=== PATIENT | female | born 1940 | race Caucasian/White ===

== ENCOUNTER 2022-03-01 12:52 | Inpatient (IN) ==
[2022-03-01] MEDS ORDERED: SODIUM CHLORIDE 0.9% 1000ML 500 ML IV ONE (13:12)
--- NOTE | 2022-03-01 13:19 | Emergency Department Note ---
Impression & Plan Weakness, Acute UTI, Acute right flank pain ED Provider Note Provider: Marquis Miller MD DATE OF SERVICE: 03/01/2022 CHIEF COMPLAINT: Weakness/confusion HISTORY OF PRESENT ILLNESS: Patient is a 81-year-old female history of hyperlipidemia, dementia, celiac disease, and hypertension presenting with daughter today with acute onset several hours prior to arrival of some increased generalized weakness and confusion. Patient originally from the [facility] staying for the last several months with daughter who lives locally. Patient doing well and came down stairs and had breakfast and went back upstairs and got dressed today. Evidently about 2 hours ago or so came back downstairs and was resting on outdoor patio furniture seemingly staring off into space and not quite herself. Daughter states she seemed a bit confused and disoriented. No traumas reported. Daughter brought her here for further evaluation. Has had a little bit of loose stools the last day or 2. No fevers reported or cough. Does report onset afternoon a little bit of pain in the right lower chest wall. Daughter states she is also noted that of a red rash on the upper trunk and thighs but the patient states is not itchy. States maybe little bit of ache in the left thigh region but denies tenderness or pain elsewise in the leg. Little bit of stable swelling in the legs. Distant history of some urinary tract infections. REVIEW OF SYSTEMS: A total of 10 review of systems was obtained and negative except as stated above in the HPI. PAST MEDICAL HISTORY: As noted above MEDICATIONS: Amlodipine and simvastatin SOCIAL HISTORY: Currently residing here with daughter. PHYSICAL EXAM: GENERAL: alert and oriented in no acute distress on stretcher although does not remember sitting on patio furniture earlier by history from daughter. Head: normocephalic and atraumatic EYES: No injection, discharge or icterus. PERRL NECK: Trachea midline. Supple. ENT: Mucous membranes pink and moist. LUNGS: Airway patent. No retractions. Breath sounds clear with good air entry bilaterally. HEART: Regular rate and rhythm. No chest wall tenderness ABDOMEN: Soft and non-tender, without guarding or rebound. BACK: No midline tenderness, minimal right flank tenderness. SKIN: Acyanotic, warm, dry with a macular slightly erythematous rash on the upper thoracic back Nikolsky negative with some slight dry peeling skin. No raised features, vesicles, or bullae noted. EXTREMITIES: Without swelling, tenderness or deformity NEUROLOGICAL: No focal deficits. No aphasia. No facial droop or slurred speech. Normal strength and tone in the extremities. Sensation to gross touch normal. Ambulatory. EK bpm normal sinus rhythm. No PVC or PAC. No acute ST segment elevation or depression with a QTC of 425. CONTINUOUS CARDIAC MONITORING: was ordered and showed a heart rate of 80s bpm in normal sinus rhythm Patient's laboratory studies and imaging reviewed. Differential includes Infection, dehydration, metabolic abnormality, hypo/hyperglycemia, electrolyte disturbance, anemia, hypoxia, cardiac sources, intracerebral event, toxicologic, neurologic, as well as other pathologies. IMPRESSION/MEDICAL DECISION MAKING: Patient with some nonspecific generalized weakness and transient disorientation earlier that is improving now according to daughter. Not having word finding, slurred speech, or aphasia. No significant numbness or weakness of the extremities focally noted. Low suspicion for CVA at this time. Given her age however complaints a CT of the head will be completed. Chest x-ray and basic labs ordered. Chest x-ray per radiology reassuring. Want to exclude possible infectious etiology. May possibly be metabolic given the improvement already. Given a small amount of IV fluids. Lyme and tickborne testing was sent as well as COVID testing for thoroughness. Rash does not appear to be SJS or TEN. Does not appear to be cellulitis. Benign abdomen. Complains of an ache in the left inguinal and thigh region but no particular mass. Given that she is had some loose bowels and this pain here did complete a CT of the abdomen pelvis with a benign abdomen otherwise. Blood work today without anemia but a leukocytosis of 15 is noted. No significant electrolyte abnormalities signs of renal dysfunction. No signs of liver dysfunction or pancreatitis. Negative anaplasmosis smear negative COVID. Urinalysis concerning for infection with nitrates and leukoesterase. Question of possible some of this right lower chest wall pain could represent possible onset of pyelonephritis. Covered with 1 g of ceftriaxone given body weight. Does not appear septic at this point. CT report of the head and abdomen and pelvis per radiology reviewed. They question some inflammation of the gallbladder. Minimal right upper quadrant tenderness and negative Chambers's. I have lower suspicion for acute cholecystitis. Believe that she is a bit off due to the infectious etiology here. Discussed with patient and daughter at bedside findings I discussed likely UTI but given the question of some gallbladder information feel that observation overnight would be warranted. I do not believe she requires an acute surgical intervention at this time. Hospitalist to be contacted. DIAGNOSIS: Weakness, acute uti, right flank pain DISPOSITION: Hospitalist will evaluate Patient was agreeable with this plan. Past Med/Surg History Social History Smoking Status: Never smoker Feels Safe at Home: Yes Results & Data (ED) Vital Signs Vital Signs - 24 hr 03/01/22 12:56 03/01/22 13:46 03/01/22 13:46 Temperature 36.4 C L Temperature Source Oral Pulse Rate 92 H 87 Pulse Rhythm Regular Pulse Strength Normal Respiratory Rate 16 14 14 Respiratory Effort / Characteristics Non-Labored Spontaneous Non-Labored Respiratory Depth Normal Normal Respiratory Pattern Regular Blood Pressure 159/75 H Blood Pressure [Left Arm] 147/65 H Blood Pressure Mean 103 Blood Pressure Mean [Left Arm] 92 Blood Pressure Position Sitting Pulse Oximetry 96 97 97 Oxygen Delivery Method Room Air Room Air Sepsis Recent Fever Within 48 Hours No Sepsis New/Unexplained Change in Mental Status No Sepsis Action Taken by Nursing No Action Required Laboratory Data Result diagrams: 03/01/22 13:30 03/01/22 13:30 Lab Results 03/01/22 03/01/22 03/01/22 Range/Units 13:30 13:30 13:30 WBC 15.00 H (4.8-10.8) K/ul RBC 3.76 L (3.93-5.22) M/uL Hgb 12.0 (12.0-16.0) g/dl Hct 37.0 (34.1-44.9) % MCV 98.4 (80.0-100.0) fL MCH 31.9 (25.0-34.0) pg MCHC 32.4 (32.0-36.0) g/dL RDW Std Deviation 50.4 H (36.4-46.3) fL RDW Coeff of Rolanda 13.9 (11.5-14.5) % Plt Count 231 (130-400) K/uL MPV 9.8 (9.4-12.3) fL Immature Gran % (Auto) 0.5 % Neut % (Auto) 85.0 % Lymph % (Auto) 5.7 % Dyer % (Auto) 8.6 % Eos % (Auto) 0.0 % Baso % (Auto) 0.2 % Neut # (Auto) 12.75 H (1.4-6.5) K/uL Lymph # (Auto) 0.86 L (1.2-3.4) K/uL Dyer # (Auto) 1.29 H (0.24-0.82) K/uL Eos # (Auto) 0.00 (0-0.50) K/uL Baso # (Auto) 0.03 (0-0.2) K/uL Immature Gran # (Auto) 0.07 H (0.00-0.02) K/uL Sodium 139 (136-145) mmol/L Potassium 3.8 (3.5-5.1) mmol/L Chloride 104 (98-107) mmol/L Carbon Dioxide 26 (21-32) mmol/L Anion Gap 9 (3-11) BUN 21 (6-23) mg/dl Creatinine 0.75 (0.6-1.2) mg/dl Est Cr Clr Drug Dosing 35.2 ml/min Est GFR ( Amer) 86.0 ml/min Est GFR (Non-Af Amer) 74.2 ml/min BUN/Creatinine Ratio 28.0 H (10-20) Glucose 104 H (70-99(Fasting)) mg/dl Calcium 8.8 (8.5-10.1) mg/dl Magnesium 1.7 (1.7-2.4) mg/dl Total Bilirubin 0.8 (0.2-1.0) mg/dl AST 20 (13-39) U/L ALT 18 (7-52) U/L Alkaline Phosphatase 62 (34-104) U/L Total Creatine Kinase 82 (26-192) U/L Troponin I High Sens 10.5 (0-14) pg/ml Total Protein 6.9 (6.0-8.3) gm/dl Albumin 4.0 (3.4-5.0) gm/dl Globulin 2.9 (2.5-4.0) gm/dl Albumin/Globulin Ratio 1.4 (0.9-2) Lipase 45 (11-82) U/L TSH 0.746 (0.300-4.500) uIu/ml Urine Color Urine Appearance (Clear) Urine pH (4.5-7.5) Ur Specific [place] (1.000-1.030) Urine Protein (Negative) Urine Glucose (UA) (Negative) Urine Ketones (Negative) Urine Blood (Negative) Urine Nitrite (Negative) Urine Bilirubin (Negative) Urine Urobilinogen (Negative) Ur Leukocyte Esterase (Negative) Urine WBC (Auto) Urine RBC (Auto) U Hyaline Cast (Auto) U Epithel Cells (Auto) Urine Bacteria (Auto) Urine RBC (0-4) /hpf Urine WBC (0-5) /hpf Ur Epithelial Cells (0-5) /lpf Urine Bacteria (Negative) Anaplasma Smear See Comment Lyme Disease IgG Ab (Negative) Lyme Disease IgM Ab (Negative) SARS-CoV-2, RNA, NAAT (NEGATIVE) 03/01/22 03/01/22 03/01/22 Range/Units 13:30 13:30 13:30 WBC (4.8-10.8) K/ul RBC (3.93-5.22) M/uL Hgb (12.0-16.0) g/dl Hct (34.1-44.9) % MCV (80.0-100.0) fL MCH (25.0-34.0) pg MCHC (32.0-36.0) g/dL RDW Std Deviation (36.4-46.3) fL RDW Coeff of Rolanda (11.5-14.5) % Plt Count (130-400) K/uL MPV (9.4-12.3) fL Immature Gran % (Auto) % Neut % (Auto) % Lymph % (Auto) % Dyer % (Auto) % Eos % (Auto) % Baso % (Auto) % Neut # (Auto) (1.4-6.5) K/uL Lymph # (Auto) (1.2-3.4) K/uL Dyer # (Auto) (0.24-0.82) K/uL Eos # (Auto) (0-0.50) K/uL Baso # (Auto) (0-0.2) K/uL Immature Gran # (Auto) (0.00-0.02) K/uL Sodium (136-145) mmol/L Potassium (3.5-5.1) mmol/L Chloride (98-107) mmol/L Carbon Dioxide (21-32) mmol/L Anion Gap (3-11) BUN (6-23) mg/dl Creatinine (0.6-1.2) mg/dl Est Cr Clr Drug Dosing ml/min Est GFR ( Amer) ml/min Est GFR (Non-Af Amer) ml/min BUN/Creatinine Ratio (10-20) Glucose (70-99(Fasting)) mg/dl Calcium (8.5-10.1) mg/dl Magnesium (1.7-2.4) mg/dl Total Bilirubin (0.2-1.0) mg/dl AST (13-39) U/L ALT (7-52) U/L Alkaline Phosphatase (34-104) U/L Total Creatine Kinase (26-192) U/L Troponin I High Sens (0-14) pg/ml Total Protein (6.0-8.3) gm/dl Albumin (3.4-5.0) gm/dl Globulin (2.5-4.0) gm/dl Albumin/Globulin Ratio (0.9-2) Lipase (11-82) U/L TSH (0.300-4.500) uIu/ml Urine Color Yellow Urine Appearance Clear (Clear) Urine pH 5.0 (4.5-7.5) Ur Specific [place] 1.018 (1.000-1.030) Urine Protein Trace H (Negative) Urine Glucose (UA) Negative (Negative) Urine Ketones Negative (Negative) Urine Blood 1+ H (Negative) Urine Nitrite Positive A (Negative) Urine Bilirubin Negative (Negative) Urine Urobilinogen Negative (Negative) Ur Leukocyte Esterase 2+ H (Negative) Urine WBC (Auto) Not Reportable Urine RBC (Auto) Not Reportable U Hyaline Cast (Auto) Not Reportable U Epithel Cells (Auto) Not Reportable Urine Bacteria (Auto) Not Reportable Urine RBC 5-10 H (0-4) /hpf Urine WBC >30 H (0-5) /hpf Ur Epithelial Cells 0-5 (0-5) /lpf Urine Bacteria 3+ H (Negative) Anaplasma Smear Lyme Disease IgG Ab Negative (Negative) Lyme Disease IgM Ab Negative (Negative) SARS-CoV-2, RNA, NAAT NEGATIVE (NEGATIVE) Administered Medications Discontinued Medications Sodium Chloride (Nss 1000ml) 500 mls @ 999 mls/hr IV .Q31M ONE Stop: 03/01/22 13:42 Last Infusion: 03/01/22 14:37 Dose: 0 mls/hr Documented By: Admin: 03/01/22 13:59 Dose: 999 mls/hr Documented By: SMITA Ceftriaxone Sodium (Rocephin) 1,000 mg in 50 mls @ 100 mls/hr IV NOW STA Stop: 03/01/22 14:54 Last Admin: 03/01/22 15:00 Dose: 100 mls/hr Documented By: SMITA Imaging Data Radiologist's Impression: Chest X-Ray 03/01/22 13:12 XR chest 1V portable CLINICAL HISTORY: weak, R chest pain TECHNIQUE: Single frontal radiograph of the chest was obtained. Comparison: None available at the time of this dictation. FINDINGS: No lines and tubes are seen. The cardiomediastinal silhouette is normal. The lungs are clear. No evidence of pleural effusion or pneumothorax. IMPRESSION: No acute chest disease. ACT 112: Negative or not required by law. Electronically signed by: Harmeet Grove M.D. 03/01/2022 1:[address] 03/01/22 13:13 CT head/brain wo con CLINICAL HISTORY: weak/fatigue Technique: Contiguous axial CT images of the head were acquired from the base of the skull to the vertex without intravenous contrast administration. Images were viewed in brain, subdural and bone windows. Automated dose lowering techniques and/or adjustment according to patient size were utilized for this exam. Comparison: None available at the time of this dictation. Findings: Areas of decreased attenuation are present in the periventricular and subcortical white matter bilaterally consistent with small vessel ischemic disease. Generalized cerebral atrophy with commensurate enlargement of the ventricles, sulci, and cisterns is also present. There is no acute intracranial hemorrhage or evidence of acute territorial infarction. No shift of the midline structures, mass effect, or extra-axial abnormalities are shown. Atherosclerot ic calcifications are present in the intracranial segments of the internal carotid arteries. Imaged portions of the paranasal sinuses and mastoid air cells are clear. The orbits appear normal. There are no acute fractures of the calvaria or scalp swelling. Impression: No acute intracranial hemorrhage, no evidence of acute territorial infarction or other acute intracranial disease process. ACT 112: Negative or not required by law. Electronically signed by: Harmeet Grvoe M.D. 03/01/2022 3:09 PM Abdomen/Pelvis CT 03/01/22 13:16 CT abd pelvis wo con CLINICAL HISTORY: LLQ pain TECHNIQUE: Helical axial images of the abdomen and pelvis were obtained. Automated dose lowering techniques and/or adjustment according to patient size were utilized for this exam. This exam was performed without intravenous con trast. CT DOSE: 854.95 mGy.cm COMPARISON: None available at the time of this dictation. FINDINGS: Lower chest: No acute abnormality Liver: Unremarkable. No focal lesions are seen. Gallbladder and biliary tree: The gallbladder wall is thickened and there is surrounding fat stranding. The common bile duct is enlarged measuring 8 mm and there is prominent dilation of intrahepatic bile ducts. Pancreas: Prominence of the pancreatic duct is seen, measuring 3 mm at the distal body. Spleen: Unremarkable. Adrenals: Unremarkable. Kidneys and ureters: Unremarkable. Bladder: Unremarkable. Reproductive organs: Patient appears to be status post hysterectomy. Bowel: Diverticulosis is seen without evidence of diverticulitis. Multiple distended and mildly thickened loops of small bowel are seen measuring up to 30 mm in diameter. Equalization of small bowel contents noted. Lymph nodes Retroperitoneal: Unremarkable. Pelvic: Unremarkable. Mesenteric: Unremarkable. Peritoneum: Normal. Vessels: Atherosclerotic calcifications are seen. Abdominal wall: Unremarkable. Bones: Degenerative changes in the visualized spine. IMPRESSION: 1. Multiple distended loops of small bowel with mildly thickened bhatt without sree obstruction. Findings may represent enteritis and/or ileus. 2. Gallbladder wall thickening and enlargement of the common bile duct and pancreatic duct. Findings may be reactive however acute cholecystitis and/or choledocholithiasis is also possible. 3. Additional findings as above. ACT 112: Negative or not required by law. Electronically signed by: Harmeet Grove M.D. 03/01/2022 3:19 PM Discharge Plan Visit Data Chief Complaint: Urinary Symptoms Stated Complaint: MIGHT HAVE A UTI ED Provider: Marquis Miller Discharge Problem: Weakness, Acute UTI, Acute right flank pain Patient Disposition: Being Evaluated by Hospitalist Forms Stand Alone Forms: My [facility] Referrals Referrals: PCP,NO [Primary Care Provider] -
--- NOTE | 2022-03-01 13:51 | XRay Report ---
XR chest 1V portable CLINICAL HISTORY: weak, R chest pain TECHNIQUE: Single frontal radiograph of the chest was obtained. Comparison: None available at the time of this dictation. FINDINGS: No lines and tubes are seen. The cardiomediastinal silhouette is normal. The lungs are clear. No evid ence of pleural effusion or pneumothorax. IMPRESSION: No acute chest disease. ACT 112: Negative or not required by law. Electronically signed by: Harmeet Grove M.D. 03/01/2022 1:49 PM
[2022-03-01 13:58] LABS: Basophils # (auto) 0.03 K/uL (0-0.2); Basophils % (auto) 0.2 %; Immature Granulocytes # (auto) 0.07 K/uL (0.00-0.02); Immature Granulocytes % (auto) 0.5 %; Lymphocytes # (auto) 0.86 K/uL (1.2-3.4); Lymphocytes % (auto) 5.7 %; Mean Corpuscular Hemoglobin 31.9 pg (25.0-34.0); Mean Corpuscular Hgb Conc 32.4 g/dL (32.0-36.0); Mean Corpuscular Volume 98.4 fL (80.0-100.0); Mean Platelet Volume 9.8 fL (9.4-12.3); Monocytes # (auto) 1.29 K/uL (0.24-0.82); Monocytes % (auto) 8.6 %; Neutrophils # (auto) 12.75 K/uL (1.4-6.5); Platelet Count 231 K/uL (130-400); RDW Coefficient of Variation 13.9 % (11.5-14.5); RDW Standard Deviation 50.4 fL (36.4-46.3); Red Blood Count 3.76 M/uL (3.93-5.22)
[2022-03-01 13:59] LABS: Appearance Urine Clear (Clear); Bilirubin Urine Negative (Negative); Blood Urine 1+ (Negative); Color Urine Yellow; Glucose Urine UA Negative (Negative); Ketones Urine Negative (Negative); Leukocyte Esterase Urine 2+ (Negative); Nitrite Urine Positive (Negative); Protein Urine Trace (Negative); Specific Gravity Urine 1.018 (1.000-1.030); Urobilinogen Urine Negative (Negative)
[2022-03-01 14:11] LABS: Albumin Globulin Ratio 1.4 (0.9-2); Bilirubin,Total 0.8 mg/dl (0.2-1.0); Calcium 8.8 mg/dl (8.5-10.1); Creatinine Clr Calc Pharmacy 35.2 ml/min; Est GFR (Non-African American) 74.2 ml/min; Globulin 2.9 gm/dl (2.5-4.0); Magnesium 1.7 mg/dl (1.7-2.4); Potassium 3.8 mmol/L (3.5-5.1); Total Protein 6.9 gm/dl (6.0-8.3)
[2022-03-01 14:18] LABS: Troponin I High Sensitivity 10.5 pg/ml (0-14)
[2022-03-01] MEDS ORDERED: cefTRIAXone SODIUM 1,000 MG/50 ML BAG IV STA (14:25)
[2022-03-01 14:49] LABS: Bacteria Urine 3+ (Negative); Epithelial Cell Urine 0-5 /lpf (0-5); WBC Urine >30 /hpf (0-5)
[2022-03-01 14:52] LABS: Lyme Ab IgG w/WB Rflx Negative (Negative); Lyme Ab IgM w/WB Rflx Negative (Negative)
--- NOTE | 2022-03-01 15:11 | CT Scan Report ---
CT head/brain wo con CLINICAL HISTORY: weak/fatigue Technique: Contiguous axial CT images of the head were acquired from the base of the skull to the reji evon without intravenous contrast administration. Images were viewed in brain, subdural and bone [facility]. Automated dose lowering techniques and/or adjustment according to patient size were utilized for this exam. Comparison: None available at the time of this dictation. Findings: Areas of decreased attenuation are present in the periventricular and subcortical white matter bilate rally consistent with small vessel ischemic disease. Generalized cerebral atrophy with commensurate e nlargement of the ventricles, sulci, and cisterns is also present. There is no acute intracranial hem orrhage or evidence of acute territorial infarction. No shift of the midline structures, mass effect, or extra-axial abnormalities are shown. Atherosclerotic calcifications are present in the intracran ial segments of the internal carotid arteries. Imaged portions of the paranasal sinuses and mastoid air cells are clear. The orbits appear normal. There are no acute fractures of the calvaria or scalp swelling. Impression: No acute intracranial hemorrhage, no evidence of acute territorial infarction or other acute intracra nial disease process. ACT 112: Negative or not required by law. Electronically signed by: Harmeet Grove M.D. 03/01/2022 3:09 PM
--- NOTE | 2022-03-01 15:22 | CT Scan Report ---
CT abd pelvis wo con CLINICAL HISTORY: LLQ pain TECHNIQUE: Helical axial images of the abdomen and pelvis were obtained. Automated dose lowering tech niques and/or adjustment according to patient size were utilized for this exam. This exam was perfor med without intravenous contrast. CT DOSE: 854.95 mGy.cm COMPARISON: None available at the time of this dictation. FINDINGS: Lower chest: No acute abnormality Liver: Unremarkable. No focal lesions are seen. Gallbladder and biliary tree: The gallbladder wall is thickened and there is surrounding fat strandin g. The common bile duct is enlarged measuring 8 mm and there is prominent dilation of intrahepatic bi le ducts. Pancreas: Prominence of the pancreatic duct is seen, measuring 3 mm at the distal body. Spleen: Unremarkable. Adrenals: Unremarkable. Kidneys and ureters: Unremarkable. Bladder: Unremarkable. Reproductive organs: Patient appears to be status post hysterectomy. Bowel: Diverticulosis is seen without evidence of diverticulitis. Multiple distended and mildly thick ened loops of small bowel are seen measuring up to 30 mm in diameter. Equalization of small bowel con tents noted. Lymph nodes Retroperitoneal: Unremarkable. Pelvic: Unremarkable. Mesenteric: Unremarkable. Peritoneum: Normal. Vessels: Atherosclerotic calcifications are seen. Abdominal wall: Unremarkable. Bones: Degenerative changes in the visualized spine. IMPRESSION: 1. Multiple distended loops of small bowel with mildly thickened bhatt without sree obstruction. Fi ndings may represent enteritis and/or ileus. 2. Gallbladder wall thickening and enlargement of the common bile duct and pancreatic duct. Findings may be reactive however acute cholecystitis and/or choledocholithiasis is also possible. 3. Additional findings as above. ACT 112: Negative or not required by law. Electronically signed by: Harmeet Grove M.D. 03/01/2022 3:19 PM
--- NOTE | 2022-03-01 15:47 | History & Physical Report ---
Date of Service March 01, 2022 Assessment & Plan (1) Acute metabolic encephalopathy: (2) UTI (urinary tract infection): (3) Weakness: Plan: This is an 81yo F with a PMH of dementia, hypertension, hyperlipidemia and other medical problems listed below who presents with lethargy and generalized weakness noted earlier today by family and was found to have urinary tract infection. Afebrile on arrival (although reported home temp of 101 F), leukocytosis of 15 K. Possible sepsis but nontoxic appearance. Lactate pending UA abnormal, anaplasma smear without evidence of inclusion bodies to suggest anaplasmosis but DNA pending. Lyme serology negative Head CT without acute intracranial abnormality, chest x-ray without abnormality. CT abd/pelvis discussed below Continue Rocephin. Follow urine culture and blood culture. Gentle IV fluids Fall precautions, PT/OT evaluation. Lives with family (4) Abnormal CT of the abdomen: Plan: CT abdomen pelvis with multiple distended loops of small bowel with mildly thickened bhatt without sree obstruction. Findings may represent enteritis and/or ileus. 2. Gallbladder wall thickening and enlargement of the common bile duct and pancreatic duct. Findings may be reactive however acute cholecystitis and/or choledocholithiasis is also possible No abdominal pain or abnormal LFTs so low suspicion for acute cholecystitis. No diarrhea Obtain gall bladder ultrasound, repeat CMP in AM Keep NPO until completion of ultrasound (5) Dementia: Plan: A&O x person on admission which is close to baseline, per daughter. Ambulates independently and feeds herself at baseline (6) Hypertension: Plan: Continue amlodipine (7) Hyperlipidemia: Plan: Continue statin DVT Ppx: SQ Lovenox Code status: FULL PCP: No local PCP - staying with daughter but medical care based in [place] for now Dispo: Admitted to med/surg Patient seen in collaboration with Dr. Wells. Please see addendum. History of Present Illness Chief Complaint: lethargy, generalized weakness Primary Care Provider: NO PCP This is an 81yo F with a PMH of dementia, hypertension, hyperlipidemia and other medical problems listed below who presents with lethargy and generalized weakness noted earlier today by family. Patient is and normally resides in [place] but due to multiple falls a few months ago, she moved in with her daughter in [place]. Is able to ambulate independently and just completed PT/OT per daughter. Woke up in normal state of health and was able to walk up and down the stairs and get dressed but patient son-in-law noted that she sat on the porch for hours with dazed expression, which is not her typical baseline. Was also unable to stand up on her own out of the chair. Family brought to ED for further evaluation. Patient is taking all medications as prescribed. Daughter reports temperature at home but normal temperature upon arrival. No chills, congestion, headache, chest pain, palpitations, nausea, vomiting, abdominal pain, dysuria, diarrhea or constipation. Any hematuria or pyuria. Allergies Allergy/AdvReac Type Severity Reaction Status Date / Time No Known Allergies Allergy Unverified 03/01/22 16:25 Home Medications Medication Instructions Recorded Confirmed Type Lactobacillus acidophilus 10 10,000 mmu cells PO DAILY 03/01/22 03/01/22 History billion cell capsule (Probiotic) amlodipine 5 mg tablet 5 mg PO QAM 03/01/22 03/01/22 History aspirin 81 mg tablet,delayed 81 mg PO QAM 03/01/22 03/01/22 History release calcium carbonate 600 mg-vitamin 1 tab PO DAILY 03/01/22 03/01/22 History D3 10 mcg (400 unit) tablet (Calcium 600 + D(3)) cyanocobalamin (vitamin B-12) 1,000 mcg PO 3XWK 03/01/22 03/01/22 History 1,000 mcg tablet (Vitamin B-12) ferrous sulfate 325 mg (65 mg 325 mg PO DAILY 03/01/22 03/01/22 History iron) tablet inulin 2 gram chewable tablet 2 g PO DAILY 03/01/22 03/01/22 History (Fiber Gummies) multivit with 1 tab PO DAILY 03/01/22 03/01/22 History opqbwchi-qvye-IU-lutein 8 mg iron-400 mcg-300 mcg tablet (Multivitamin Women 50 Plus) simvastatin 20 mg tablet 20 mg PO HS 03/02/22 03/02/22 History cephalexin 500 mg capsule 500 mg PO Q12H 5 days #10 caps 03/03/22 Rx Past Med/Surg History Medical History (Updated 03/01/22 @ 16:36 by Tyra Nichols PA-C) Celiac disease Dementia Hyperlipidemia Hypertension Surgical History H/O: hysterectomy Family History Other Heart disease Stroke Social History (Updated 03/01/22 @ 16:20 by Tyra Nichols PA-C) Smoking Status: Never smoker Hx Alcohol Use: Yes Alcohol type: wine Alcohol Intake Frequency: Monthly or Less Hx Substance Use: No Preferred Language: Czech [employer] Required: No Beliefs That Will Affect Care: None Current Living Situation: Family Other Information That Helps Us Care for You: No Feels Safe at Home: Yes Safety Concerns: Feels Safe At This Time Assistive Devices: None Assistive Devices Comment: readers - daughter may bring in Review of Systems Review of Systems: At least ten systems reviewed and negative except as noted in the HPI. Physical Exam Physical Exam: General Appearance: WD/WN, vitals as above, NAD, sitting up in bed, pleasant, frail Head: normocephalic, atraumatic Eyes: normal inspection, PERRL, conjunctivae normal, anicteric sclerae ENT: external ear and nose normal, oropharynx normal Neck: normal visual inspection, trachea midline, no thyromegaly Respiratory: normal respiratory effort, lungs clear to auscultation, no wheeze, rales, rhonchi. No accessory muscle use Cardiovascular: regular rate, rhythm, no murmur, normal peripheral pulses, no BLE edema. Vessels: no JVD Chest: normal inspection of chest Abdomen/GI: hyperactive bowel sounds, soft, nontender, no hepatosplenomegaly Extremities/Musculoskeletal: no cyanosis or clubbing, extremities motor strength 5/5 Neurologic: PERRL, EOMI, accommodation nl, no face palsy, no dysarthria, CN's II-XI intact bilaterally and moves all extremities Psychiatric: A+Ox person, euthymic affect Skin: no rashes, normal color, warm/dry Results & Data Results & Data ([facility]) Vital Signs (Past 12 Hours) Vital Signs Temp Pulse Resp BP BP Pulse Ox O2 Del Method 03/01/22 13:46 87 14 97 Room Air 03/01/22 13:46 14 147/65 H 97 03/01/22 12:56 36.4 C L 92 H 16 159/75 H 96 Room Air Laboratory Results Short CBC 03/01/22 Range/Units 13:30 WBC 15.00 H (4.8-10.8) K/ul Hgb 12.0 (12.0-16.0) g/dl Hct 37.0 (34.1-44.9) % Plt Count 231 (130-400) K/uL BMP 03/01/22 13:30 Sodium 139 Potassium 3.8 Chloride 104 Carbon Dioxide 26 BUN 21 Creatinine 0.75 Glucose 104 H Calcium 8.8 Cardiac Enzymes 03/01/22 Range/Units 13:30 Total Creatine Kinase 82 (26-192) U/L Liver Function 03/01/22 Range/Units 13:30 Total Bilirubin 0.8 (0.2-1.0) mg/dl AST 20 (13-39) U/L ALT 18 (7-52) U/L Alkaline Phosphatase 62 (34-104) U/L Albumin 4.0 (3.4-5.0) gm/dl Urine 03/01/22 Range/Units 13:30 Urine Color Yellow Urine Appearance Clear (Clear) Urine pH 5.0 (4.5-7.5) Ur Specific [place] 1.018 (1.000-1.030) Urine Protein Trace H (Negative) Urine Glucose (UA) Negative (Negative) Diagnostic Findings Chest X-Ray 03/01/22 13:12 XR chest 1V portable CLINICAL HISTORY: weak, R chest pain TECHNIQUE: Single frontal radiograph of the chest was obtained. Comparison: None available at the time of this dictation. FINDINGS: No lines and tubes are seen. The cardiomediastinal silhouette is normal. The lungs are clear. No evidence of pleural effusion or pneumothorax. IMPRESSION: No acute chest disease. ACT 112: Negative or not required by law. Electronically signed by: Harmeet Grove M.D. 03/01/2022 1:[address] 03/01/22 13:13 CT head/brain wo con CLINICAL HISTORY: weak/fatigue Technique: Contiguous axial CT images of the head were acquired from the base of the skull to the vertex without intravenous contrast administration. Images were viewed in brain, subdural and bone windows. Automated dose lowering techniques and/or adjustment according to patient size were utilized for this exam. Comparison: None available at the time of this dictation. Findings: Areas of decreased attenuation are present in the periventricular and subcortical white matter bilaterally consistent with small vessel ischemic disease. Generalized cerebral atrophy with commensurate enlargement of the ventricles, sulci, and cisterns is also present. There is no acute intracranial hemorrhage or evidence of acute territorial infarction. No shift of the midline structures, mass effect, or extra-axial abnormalities are shown. Atherosclerotic calcifications are present in the intracranial segments of the internal carotid arteries. Imaged portions of the paranasal sinuses and mastoid air cells are clear. The orbits appear normal. There are no acute fractures of the calvaria or scalp swelling. Impression: No acute intracranial hemorrhage, no evidence of acute territorial infarction or other acute intracranial disease process. ACT 112: Negative or not required by law. Electronically signed by: Harmeet Grove M.D. 03/01/2022 3:09 PM Abdomen/Pelvis CT 03/01/22 13:16 CT abd pelvis wo con CLINICAL HISTORY: LLQ pain TECHNIQUE: Helical axial images of the abdomen and pelvis were obtained. Automated dose lowering techniques and/or adjustment according to patient size were utilized for this exam. This exam was performed without intravenous contrast. CT DOSE: 854.95 mGy.cm COMPARISON: None available at the time of this dictation. FINDINGS: Lower chest: No acute abnormality Liver: Unremarkable. No focal lesions are seen. Gallbladder and biliary tree: The gallbladder wall is thickened and there is surrounding fat stranding. The common bile duct is enlarged measuring 8 mm and there is prominent dilation of intrahepatic bile ducts. Pancreas: Prominence of the pancreatic duct is seen, measuring 3 mm at the distal body. Spleen: Unremarkable. Adrenals: Unremarkable. Kidneys and ureters: Unremarkable. Bladder: Unremarkable. Reproductive organs: Patient appears to be status post hysterectomy. Bowel: Diverticulosis is seen without evidence of diverticulitis. Multiple distended and mildly thickened loops of small bowel are seen measuring up to 30 mm in diameter. Equalization of small bowel contents noted. Lymph nodes Retroperitoneal: Unremarkable. Pelvic: Unremarkable. Mesenteric: Unremarkable. Peritoneum: Normal. Vessels: Atherosclerotic calcifications are seen. Abdominal wall: Unremarkable. Bones: Degenerative changes in the visualized spine. IMPRESSION: 1. Multiple distended loops of small bowel with mildly thickened bhatt without sree obstruction. Findings may represent enteritis and/or ileus. 2. Gallbladder wall thickening and enlargement of the common bile duct and pancreatic duct. Findings may be reactive however acute cholecystitis and/or choledocholithiasis is also possible. 3. Additional findings as above. ACT 112: Negative or not required by law. Electronically signed by: Harmeet Grove M.D. 03/01/2022 3:19 PM Code Status & VTE Plan VTE Prophylaxis Plan VTE Prophylaxis will be ordered: Yes Supervising Physician Co-Signing Physician Notes delayed entry date of service noted above Attending Addendum: care coordinated with SEUN Nichols please refer to her notes for full details, I agree with her notes patient seen and examined, records reviewed by myself as well on exam, patient seen with daughter at bedside alert, oriented x 3, answers questions appropriately feels weak, but otherwise no active symptoms diagnoses and plan of care as per SEUN Nichols's notes Viktor Wells MD
[2022-03-01] MEDS ORDERED: SODIUM CHLORIDE 0.9% 500 ML IV SCH (16:45)
[2022-03-01] MEDS ORDERED: ACETAMINOPHEN 325 MG TAB PO PRN (16:57)
[2022-03-01] MEDS ORDERED: POLYETHYLENE (MIRALAX) 17 GM PACK PO PRN (16:57)
[2022-03-01] MEDS: ENOXAPARIN INJ 30 MG/0.3 ML SYR SQ SCH (20:13)
[2022-03-02] MEDS: amLODIPine BESYLATE 5 MG TAB PO SCH (08:30)
[2022-03-02 08:36] LABS: Hematocrit (blood only) 34.3 % (34.1-44.9); Hemoglobin 10.8 g/dl (12.0-16.0); Mean Corpuscular Hgb Conc 31.5 g/dL (32.0-36.0); Mean Corpuscular Volume 98.6 fL (80.0-100.0); Mean Platelet Volume 10.1 fL (9.4-12.3); Platelet Count 207 K/uL (130-400); RDW Coefficient of Variation 13.8 % (11.5-14.5); RDW Standard Deviation 50.2 fL (36.4-46.3); Red Blood Count 3.48 M/uL (3.93-5.22); White Blood Count 9.13 K/ul (4.8-10.8)
[2022-03-02 09:00] LABS: Albumin Globulin Ratio 1.3 (0.9-2); Albumin Level 3.2 gm/dl (3.4-5.0); BUN Creatinine Ratio 23.8 (10-20); Bilirubin,Total 0.6 mg/dl (0.2-1.0); Calcium 8.1 mg/dl (8.5-10.1); Est GFR (African American) 96.8 ml/min; Est GFR (Non-African American) 83.5 ml/min; Globulin 2.5 gm/dl (2.5-4.0); Potassium 3.5 mmol/L (3.5-5.1); Total Protein 5.7 gm/dl (6.0-8.3)
--- NOTE | 2022-03-02 10:59 | Ultrasound Report ---
US abdomen limited CLINICAL HISTORY: Abnormal gallbladder from CT. Evaluate for possible acute cholecystitis. COMPARISON: CT of the abdomen and pelvis from 03/01/2022 TECHNIQUE: Multiple grayscale and color images of the right upper quadrant of the abdomen. FINDINGS: Pancreas: The pancreas is within normal limits with no focal mass or peripancreatic fluid collection identified. Liver: The liver is homogeneous in echogenicity There is no evidence for a focal mass. There is no in trahepatic biliary duct dilatation. Gallbladder: The gallbladder is partially contracted with thickening of the gallbladder wall and slud ge present within the gallbladder. No pericholecystic edema or cholelithiasis is seen. There was a ne gative sonographic Chambers sign. Common Bile Duct: (CBD): Common bile duct is mildly dilated measuring 8 mm. Inferior Vena Cava (IVC): The imaged IVC is patent. Right kidney: There is no evidence for hydronephrosis, calculus or gross renal mass. Multiple small s imple cysts are present, the largest measuring 9 mm. No further follow-up is necessary for these maryellen gn findings. The kidney is normal in size. IMPRESSION: 1. Partial contraction of the gallbladder with sludge and thickening of the gallbladder wall. However , no pericholecystic edema or cholelithiasis is seen and there was a negative sonographic Chambers sign . No ultrasound findings suspicious for acute cholecystitis. ACT 112: Negative or not required by law. Electronically signed by: hTad Falcon M.D. 03/02/2022 10:57 AM
--- NOTE | 2022-03-02 13:31 | Electrocardiogram Report ---
Test Reason : Blood Pressure : / mmHG Vent. Rate : 083 BPM Atrial Rate : 083 BPM P-R Int : 132 ms QRS Dur : 068 ms QT Int : 362 ms P-R-T Axes : 078 050 064 degrees QTc Int : 425 ms Poor data quality, interpretation may be adversely affected Normal sinus rhythm Possible Left atrial enlargement Nonspecific T wave abnormality Abnormal ECG No previous ECGs available Confirmed by Khai Sweeney ([id number]) on 03/02/2022 1:31:16 PM Referred By: REFERRED SELF Confirmed By:Khai Sweeney
[2022-03-02] MEDS ORDERED: cefTRIAXone SODIUM 1,000 MG in DEXTROSE 5% 50 ML IV SCH (14:00)
[2022-03-02] MEDS ORDERED: Nursing to Pharmacy Communication SCH (18:00)
[2022-03-02] MEDS: ENOXAPARIN INJ 30 MG/0.3 ML SYR SQ SCH (20:41)
[2022-03-02] MEDS ORDERED: SIMVASTATIN 20 MG TAB PO SCH (21:00)
--- NOTE | 2022-03-02 23:49 | Hospitalist Progress Note ---
Date of Service March 02, 2022 Assessment & Plan (1) Acute metabolic encephalopathy: (2) UTI (urinary tract infection): (3) Weakness: Plan: This is an 81yo F with a PMH of dementia, hypertension, hyperlipidemia and other medical problems listed below who presents with lethargy and generalized weakness noted earlier today by family and was found to have urinary tract infection. Afebrile on arrival (although reported home temp of 101 F), leukocytosis of 15 K. Urine cx positive for gram negative bacilli Currently on Rocephin IV Follow up urine sensitivity Generalized weakness CT head showed No acute intracranial hemorrhage, no evidence of acute territorial infarction or other acute intracranial disease process. Continue PT/OT eval Fall precaution (4) Abnormal CT of the abdomen: Plan: CT abdomen pelvis with multiple distended loops of small bowel with mildly thickened bhatt without sree obstruction. Findings may represent enteritis and/or ileus. 2. Gallbladder wall thickening and enlargement of the common bile duct and pancreatic duct. Findings may be reactive however acute cholecystitis and/or choledocholithiasis is also possible Abdominal U/S showed Partial contraction of the gallbladder with sludge and thickening of the gallbladder wall. However, no pericholecystic edema or cholelithiasis is seen and there was a negative sonographic Chambers sign. No ultrasound findings suspicious for acute cholecystitis. No abdominal pain or abnormal LFTs so low suspicion for acute cholecystitis. No diarrhea (5) Dementia: Plan: A&O x person on admission which is close to baseline, per daughter. Ambulates independently and feeds herself at baseline (6) Hypertension: Plan: Continue amlodipine (7) Hyperlipidemia: Plan: Continue statin DVT Ppx: SQ Lovenox Code status: DNR PCP: No local PCP - staying with daughter but medical care based in [place] for now Admission and Anticipated Discharge Date Admission Date: March 01, 2022 Subjective Pt was seen and examined for follow up of lethargy and weakness Sitting at the edge of the bed with no acute distress eating lunch with daughter at bedside Pt said that she feels alot better Daughter said that she seems back to her baseline Daughter brought her advanced directive document and status was changed to DNR Denies any chest pain, palpitation and SOB Review of Systems Review of Systems: All systems reviewed & are unremarkable except as noted in Subjective Physical Exam Physical Exam: General- No acute distress Head- atraumatic Eyes- PERRL, EOMI, ENT- oropharynx clear Neck- supple, no JVD Lungs- clear to auscultation Heart- regular rhythm; no murmur Abdomen- normal bowel sounds, soft, nontender Extremities- no calf tenderness Neuro- alert, oriented x 3; PERRL, EOMI; no facial palsy; no dysarthria Skin- warm & dry Results & Data Results & Data ([facility]) Vital Signs (Past 12 Hours) Vital Signs Temp Pulse Pulse Resp BP Pulse Ox O2 Del Method 03/02/22 19:29 36.6 C 80 18 133/65 96 Room Air 03/02/22 16:00 37 C 78 20 129/81 99 Room Air
[2022-03-03] MEDS: amLODIPine BESYLATE 5 MG TAB PO SCH (08:10)
[2022-03-03] MEDS ORDERED: cephALEXin 500 MG CAP PO SCH (12:45)
[2022-03-03] MEDS ORDERED: CEFDINIR 300 MG CAP PO SCH (14:00)
--- NOTE | 2022-03-12 08:34 | Discharge Summary ---
Date of Service March 03, 2022 Admission HPI Per Admitting Provider This is an 81yo F with a PMH of dementia, hypertension, hyperlipidemia and other medical problems listed below who presents with lethargy and generalized weakness noted earlier today by family. Patient is and normally resides in [place] but due to multiple falls a few months ago, she moved in with her daughter in [place]. Is able to ambulate independently and just completed PT/OT per daughter. Woke up in normal state of health and was able to walk up and down the stairs and get dressed but patient son-in-law noted that she sat on the porch for hours with dazed expression, which is not her typical baseline. Was also unable to stand up on her own out of the chair. Family brought to ED for further evaluation. Patient is taking all medications as prescribed. Daughter reports temperature at home but normal temperature upon arrival. No chills, congestion, headache, chest pain, palpitations, nausea, vomiting, abdominal pain, dysuria, diarrhea or constipation. Any hematuria or pyuria. Admission Exam Per Admitting Provider General Appearance:WD/WN, vitals as above, NAD, sitting up in bed, pleasant, frail Head: normocephalic, atraumatic Eyes:normal inspection, PERRL, conjunctivae normal, anicteric sclerae ENT: external ear and nose normal, oropharynx normal Neck: normal visual inspection, trachea midline, no thyromegaly Respiratory:normal respiratory effort, lungs clear to auscultation, no wheeze, rales, rhonchi. No accessory muscle use Cardiovascular: regular rate, rhythm, no murmur, normal peripheral pulses, no BLE edema. Vessels: no JVD Chest: normal inspection of chest Abdomen/GI: hyperactive bowel sounds, soft, nontender, no hepatosplenomegaly Extremities/Musculoskeletal: no cyanosis or clubbing, extremities motor strength 5/5 Neurologic: PERRL, EOMI, accommodation nl, no face palsy, no dysarthria, CN's II-XI intact bilaterally and moves all extremities Psychiatric:A+Ox person, euthymic affect Skin: no rashes, normal color, warm/dry Principal Diagnosis Acute metabolic encephalopathy UTI (urinary tract infection) Cholelithiasis Generalized weakness Dementia Hypertension Hyperlipidemia: Discharge Exam General- No acute distress Head- atraumatic Eyes- PERRL, EOMI, ENT- oropharynx clear Neck- supple, no JVD Lungs- clear to auscultation Heart- regular rhythm; no murmur Abdomen- normal bowel sounds, soft, nontender Extremities- no calf tenderness Neuro- alert, oriented x 3; PERRL, EOMI; no facial palsy; no dysarthria Skin- warm & dry Discharge Data Allergies Allergy/AdvReac Type Severity Reaction Status Date / Time amoxicillin Allergy Unknown Verified 03/03/22 13:52 cephalexin [From Keflex] Allergy Unknown Verified 03/03/22 13:52 Sulfa (Sulfonamide Allergy Unknown Verified 03/03/22 13:52 Antibiotics) Consultations 03/01/22 15:33 ED Decision to Admit Stat Ordered Studies 03/01/22 13:13 CT head/brain wo con Stat 03/01/22 13:16 CT abd pelvis wo con Stat 03/02/22 16:34 US abdomen limited Routine XR chest 1V portable CLINICAL HISTORY: weak, R chest pain TECHNIQUE: Single frontal radiograph of the chest was obtained. Comparison: None available at the time of this dictation. FINDINGS: No lines and tubes are seen. The cardiomediastinal silhouette is normal. The lungs are clear. No evidence of pleural effusion or pneumothorax. IMPRESSION: No acute chest disease. ACT 112: Negative or not required by law. Electronically signed by: Harmeet Grove M.D. 03/01/2022 1:49 PM Dictated:03/01/22 1347 Transcribed: 03/01/[address] head/brain wo con CLINICAL HISTORY: weak/fatigue Technique: Contiguous axial CT images of the head were acquired from the base of the skull to the vertex without intravenous contrast administration. Images were viewed in brain, subdural and bone windows. Automated dose lowering techniques and/or adjustment according to patient size were utilized for this exam. Comparison: None available at the time of this dictation. Findings: Areas of decreased attenuation are present in the periventricular and subcortical white matter bilaterally consistent with small vessel ischemic disease. Generalized cerebral atrophy with commensurate enlargement of the ventricles, sulci, and cisterns is also present. There is no acute intracranial hemorrhage or evidence of acute territorial infarction. No shift of the midline structures, mass effect, or extra-axial abnormalities are shown. Atherosclerotic calcifications are present in the intracranial segments of the internal carotid arteries. Imaged portions of the paranasal sinuses and mastoid air cells are clear. The orbits appear normal. There are no acute fractures of the calvaria or scalp swelling. Impression: No acute intracranial hemorrhage, no evidence of acute territorial infarction or other acute intracranial disease process. ACT 112: Negative or not required by law. Electronically signed by: Harmeet Grove M.D. 03/01/2022 3:09 PM Dictated:03/01/22 1509 Transcribed: 03/01/[address] abd pelvis wo con CLINICAL HISTORY: LLQ pain TECHNIQUE: Helical axial images of the abdomen and pelvis were obtained. Automated dose lowering techniques and/or adjustment according to patient size were utilized for this exam. This exam was performed without intravenous contrast. CT DOSE: 854.95 mGy.cm COMPARISON: None available at the time of this dictation. FINDINGS: Lower chest: No acute abnormality Liver: Unremarkable. No focal lesions are seen. Gallbladder and biliary tree: The gallbladder wall is thickened and there is surrounding fat stranding. The common bile duct is enlarged measuring 8 mm and there is prominent dilation of intrahepatic bile ducts. Pancreas: Prominence of the pancreatic duct is seen, measuring 3 mm at the distal body. Spleen: Unremarkable. Adrenals: Unremarkable. Kidneys and ureters: Unremarkable. Bladder: Unremarkable. Reproductive organs: Patient appears to be status post hysterectomy. Bowel: Diverticulosis is seen without evidence of diverticulitis. Multiple distended and mildly thickened loops of small bowel are seen measuring up to 30 mm in diameter. Equalization of small bowel contents noted. Lymph nodes Retroperitoneal: Unremarkable. Pelvic: Unremarkable. Mesenteric: Unremarkable. Peritoneum: Normal. Vessels: Atherosclerotic calcifications are seen. Abdominal wall: Unremarkable. Bones: Degenerative changes in the visualized spine. IMPRESSION: 1. Multiple distended loops of small bowel with mildly thickened bhatt without sree obstruction. Findings may represent enteritis and/or ileus. 2. Gallbladder wall thickening and enlargement of the common bile duct and pancreatic duct. Findings may be reactive however acute cholecystitis and/or choledocholithiasis is also possible. 3. Additional findings as above. ACT 112: Negative or not required by law. Electronically signed by: Harmeet Grove M.D. 03/01/2022 3:19 PM Dictated:03/01/22 1510 Transcribed: 03/01/22 1510 US abdomen limited CLINICAL HISTORY: Abnormal gallbladder from CT. Evaluate for possible acute cholecystitis. COMPARISON: CT of the abdomen and pelvis from 03/01/2022 TECHNIQUE: Multiple grayscale and color images of the right upper quadrant of the abdomen. FINDINGS: Pancreas: The pancreas is within normal limits with no focal mass or peripancreatic fluid collection identified. Liver: The liver is homogeneous in echogenicity There is no evidence for a focal mass. There is no intrahepatic biliary duct dilatation. Gallbladder: The gallbladder is partially contracted with thickening of the gallbladder wall and sludge present within the gallbladder. No pericholecystic edema or cholelithiasis is seen. There was a negative sonographic Chambers sign. Common Bile Duct: (CBD): Common bile duct is mildly dilated measuring 8 mm. Inferior Vena Cava (IVC): The imaged IVC is patent. Right kidney: There is no evidence for hydronephrosis, calculus or gross renal mass. Multiple small simple cysts are present, the largest measuring 9 mm. No further follow-up is necessary for these benign findings. The kidney is normal in size. IMPRESSION: 1. Partial contraction of the gallbladder with sludge and thickening of the gallbladder wall. However, no pericholecystic edema or cholelithiasis is seen and there was a negative sonographic Chambers sign. No ultrasound findings suspicious for acute cholecystitis. ACT 112: Negative or not required by law. Electronically signed by: Thad Falcon M.D. 03/02/2022 10:57 AM Dictated:03/02/22 1054 Transcribed: 03/02/22 1054 Hospital Course (1) Acute metabolic encephalopathy: (2) UTI (urinary tract infection): (3) Weakness: This is an 81yo F with a PMH of dementia, hypertension, hyperlipidemia and other medical problems listed below who presents with lethargy and generalized weakness noted earlier today by family and was found to have urinary tract infection. Afebrile on arrival (although reported home temp of 101 F), leukocytosis of 15 K. Urine cx positive for gram negative bacilli Currently on Rocephin IV Follow up urine sensitivity Generalized weakness CT head showed No acute intracranial hemorrhage, no evidence of acute territorial infarction or other acute intracranial disease process. Continue PT/OT eval Fall precaution (4) Abnormal CT of the abdomen: CT abdomen pelvis with multiple distended loops of small bowel with mildly thickened bhatt without sree obstruction. Findings may represent enteritis and/or ileus. 2. Gallbladder wall thickening and enlargement of the common bile duct and pancreatic duct. Findings may be reactive however acute cholecystitis and/or choledocholithiasis is also possible Abdominal U/S showed Partial contraction of the gallbladder with sludge and thickening of the gallbladder wall. However, no pericholecystic edema or cholelithiasis is seen and there was a negative sonographic Chambers sign. No ultrasound findings suspicious for acute cholecystitis. No abdominal pain or abnormal LFTs so low suspicion for acute cholecystitis. No diarrhea (5) Dementia: A&O x person on admission which is close to baseline, per daughter. Ambulates independently and feeds herself at baseline (6) Hypertension: Continue amlodipine (7) Hyperlipidemia: Continue statin DVT Ppx: SQ Lovenox Code status: DNR PCP: No local PCP - staying with daughter but medical care based in [place] for now Total Time Total Time Spent Total Time Spent (In Minutes): 40 minutes Discharge Plan Discharge Items Patient Disposition: Home - Home Health Services Reason For Visit: ACUTE METABOLIC ENCEPHALOPATHY,UTI Discharge Diagnosis: Acute metabolic encephalopathy UTI (urinary tract infection) Cholelithiasis Generalized weakness Dementia Hypertension Hyperlipidemia: Activity: Resume your previous activity Non-emergency contact: Primary Care Provider Call non-emergency contact if: you have any medication questions and your temperature is above 101 Follow-up/Referrals: Zenon Marr DO [Outside Practitioners] - (Date & Time 03/10/2022 11:20 AM Provider Zenon Marr DO [facility] [address] [place] [address] ) Diet: Heart Healthy Add Attending Provider Instructions: Follow up with your new primary care provider 03/10/2022 @11:20 AM Zenon Marr DO [facility] [address] [place] [address] Seek medical attention if you develop any abdominal discomfort or fever Fall precaution Pending Studies at Discharge: No Stand-Alone Forms: My [employer], Smoking Cessation Medications and DC Order Prescriptions: New cefdinir 300 mg capsule 300 mg PO BID Qty: 10 0RF Continued amlodipine 5 mg Tablet 5 mg PO QAM cyanocobalamin (vitamin B-12) [Vitamin B-12] 1,000 mcg Tablet 1,000 mcg PO 3XWK Rx Instructions: thursday,thursday,thursday aspirin 81 mg Tablet,Delayed Release (Dr/Ec) 81 mg PO QAM ferrous sulfate 325 mg (65 mg iron) Tablet 325 mg PO DAILY calcium carbonate-vitamin D3 [Calcium 600 + D(3)] 600 mg-10 mcg (400 unit) Tablet 1 tab PO DAILY Multivitamin Women 50 Plus 8 mg iron-400 mcg-300 mcg Tablet 1 tab PO DAILY Probiotic 10 billion cell Capsule 10,000 mmu cells PO DAILY Fiber Gummies 2 gram Tablet,Chewable 2 g PO DAILY simvastatin 20 mg Tablet 20 mg PO HS Discharge Orders: Discharge Order (Routine); Ordered 03/03/22 Ordered By: Rafaela Morocho/Other Patient Handouts: Urinary Tract Infections in Women Admission Data Admit Date/Time: 03/01/22 15:41 Attending Provider: Rafaela Stuart Admit Provider: Viktor Wells Primary Care Provider: PCP,NO Other Providers: Viktor Wells Other Interventions: Discharge Summary Assessment (RN) Last Done: 03/03/22 15:31
== END 2022-03-03 15:57 | disposition home or self-care (01) | DRG 689 ==
LOC: ED 12:52 → 3W 15:41 → SUATTDRO 15:41 → 3W 16:32